=== PATIENT | male | born 1990 | race Caucasian/White ===

== ENCOUNTER 2017-06-16 16:04 | Emergency (ER) | payer SELFPAY ==
[2017-06-16 16:12] VITALS: BP 143/87
--- NOTE | 2017-06-16 16:54 | ER Document Report ---
HPI - HPI Patient complains to provider of: mouth pain Onset: Other - Several days Onset/Duration: Gradual Quality of pain: Achy, Throbbing Pain Level: 5 Context: 27-year-old male complaining of lower left mouth pain which now extends to the upper right side. No facial swelling or fever. Associated Symptoms: None Exacerbated by: Denies Relieved by: Denies Similar symptoms previously: Yes Recently seen / treated by doctor: No - ROS ROS below otherwise negative: Yes Systems Reviewed and Negative: Yes All other systems reviewed and negative - CARDIOVASCULAR Cardiovascular: DENIES: Chest pain - DERM Skin Color: Normal Past Medical History - General Information source: Patient - Social History Smoking Status: Former Smoker Chew tobacco use (# tins/day): Yes Frequency of alcohol use: Occasional Drug Abuse: None Lives with: Spouse/Significant other Family History: Reviewed & Not Pertinent Patient has suicidal ideation: No Patient has homicidal ideation: No - Medical History Medical History: Negative Surgical Hx: Negative - Immunizations Immunizations up to date: No Hx Diphtheria, Pertussis, Tetanus Vaccination: No Vertical Provider Document - CONSTITUTIONAL Agree With Documented VS: Yes Exam Limitations: No Limitations General Appearance: No Apparent Distress - INFECTION CONTROL TRAVEL OUTSIDE OF THE [place] IN LAST 30 DAYS: No - HEENT HEENT: Normocephalic Notes: multiple decayed teeth, no abscess, some retracted gingiva - NECK Neck: Supple. negative: Lymphadenopathy-Left, Lymphadenopathy-Right - RESPIRATORY Respiratory: Breath Sounds Normal, No Respiratory Distress O2 Sat by Pulse Oximetry: 99 - CARDIOVASCULAR Cardiovascular: Regular Rate, Regular Rhythm - NEURO Level of Consciousness: Awake, Alert, Appropriate - DERM Integumentary: Warm, Dry, No Rash Course - Vital Signs Vital signs: Temp Pulse Resp BP Pulse Ox 98.1 F 68 14 143/87 H 99 06/16/17 16:12 06/16/17 16:12 06/16/17 16:12 06/16/17 16:12 06/16/17 16:12 Discharge - Discharge Clinical Impression: Dental pain and decay Condition: Good Disposition: HOME, SELF-CARE Instructions: Penicillin V K ([facility]), Toothache ([facility]), Ultram ([facility]), Dentist Additional Instructions: see the dentist to er any concerns or swelling, fever Please complete the patient satisfaction survey if you get one, and return it.. If you do not receive a survey, then you can go to the [facility] website, [email or web address] and place your comments about your very good care. Thank you very much. It was a pleasure being your medical provider today. Prescriptions: Ibuprofen [Motrin 800 mg Tablet] 800 mg PO Q8HP PRN #30 tablet PRN Reason: Penicillin V Potassium [Penicillin Vk 500 mg Tablet] 500 mg PO QID #40 tablet Tramadol HCl [Ultram 50 mg Tablet] 50 mg PO ASDIR PRN #20 tablet PRN Reason: Forms: Return to Work
== END 2017-06-16 17:05 | disposition home or self-care (01) ==
LOC: ER 16:04
DX: K08.9 Disorder of teeth and supporting structures, unspecified (principal); K02.9 Dental caries, unspecified; Z87.891 Personal history of nicotine dependence
CPT/HCPCS: 99282

== ENCOUNTER 2017-07-14 14:17 | Emergency (ER) | payer SELFPAY ==
[2017-07-14] MEDS ORDERED: LIDOCAINE 1% INJ-PF (10 MG/ML) 30 ML SDV INJ ONE (15:05)
--- NOTE | 2017-07-14 15:06 | ER Document Report ---
ED Head/Face/Scalp Injury - General Chief Complaint: Head Injury Stated Complaint: HEAD INJURY Time Seen by Provider: 07/14/17 14:44 Mode of Arrival: Ambulatory Information source: Patient Notes: 27-year-old male presents to ED for injury to the right scalp. He states he was framing a house when a nail gun was dropped from above him landing with the sharp pointing point of the nail gun with a red nail attached to the right scalp. He states his tetanus shot was last within the last 2 years. He is alert and oriented. He states he did not lose consciousness at the time of the injury but it was for a short period of time. He has had no disorientation, confusion, or loss of sensation since then. He has had no vomiting, but he states he has felt a little nauseated. He walks with a steady gait cranial nerves grossly intact, people pupils equal and react to light. TRAVEL OUTSIDE OF THE [place] IN LAST 30 DAYS: No - HPI Patient complains to provider of: Injury, Laceration, Pain, Swelling Injury to: Scalp Location of problem: Head Occurred: This afternoon Where: Outdoors, Work Timing: Better Context: Other - nail gun fell @ 15 feet landing on the left side of scalp Loss consciousness: Brief (seconds) - unknown period Remembers: Injury, Coming to hospital - Related Data Allergies/Adverse Reactions: No Known Allergies Allergy (Verified 07/14/17 14:31) Past Medical History - General Information source: Patient - Social History Smoking Status: Current Every Day Smoker Cigarette use (# per day): Yes - ppd Chew tobacco use (# tins/day): No Smoking Education Provided: Yes - less than 2 min Frequency of alcohol use: None Drug Abuse: None 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[employer] Lives with: Spouse/Significant other Family History: CAD, COPD, CVA, DM, Hyperlipidemia, Hypertension, Thyroid Disfunction - Past Medical History Cardiac Medical History: Reports: None Pulmonary Medical History: Reports: None EENT Medical History: Reports: None Neurological Medical History: Reports: None Endocrine Medical History: Reports: None Renal/ Medical History: Reports: None Malignancy Medical History: Reports None GI Medical History: Reports: None Musculoskeltal Medical History: Reports None Skin Medical History: Reports None Psychiatric Medical History: Reports: None Traumatic Medical History: Reports: None Infectious Medical History: Reports: None Surgical Hx: Negative Past Surgical History: Reports: None - Immunizations Immunizations up to date: No Hx Diphtheria, Pertussis, Tetanus Vaccination: No Review of Systems - Review of Systems Constitutional: No symptoms reported EENT: No symptoms reported Cardiovascular: No symptoms reported Respiratory: No symptoms reported Gastrointestinal: No symptoms reported Genitourinary: No symptoms reported Male Genitourinary: No symptoms reported Musculoskeletal: No symptoms reported Skin: Other - scalp 2 cm flap Hematologic/Lymphatic: No symptoms reported Neurological/Psychological: No symptoms reported -: Yes All other systems reviewed and negative Physical Exam - Vital signs Vitals: Temp Pulse Resp BP Pulse Ox 98.7 F 75 16 130/79 H 98 07/14/17 14:29 07/14/17 14:29 07/14/17 14:29 07/14/17 14:29 07/14/17 14:29 Interpretation: Normal - General General appearance: Appears well, Alert - HEENT Head: Normocephalic, Atraumatic Eyes: Normal Pupils: PERRL - Respiratory Respiratory status: No respiratory distress Chest status: Nontender Breath sounds: Normal Chest palpation: Normal - Cardiovascular Rhythm: Regular Heart sounds: Normal auscultation Murmur: No - Abdominal Inspection: Normal Distension: No distension Bowel sounds: Normal Tenderness: Nontender Organomegaly: No organomegaly - Back Back: Normal, Nontender - Extremities General upper extremity: Normal inspection, Nontender, Normal color, Normal ROM , Normal temperature General lower extremity: Normal inspection, Nontender, Normal color, Normal ROM , Normal temperature, Normal weight bearing. No: Ashtyn's sign - Neurological Neuro grossly intact: Yes Cognition: Normal Orientation: AAOx4 [place] Coma Scale Eye Opening: Spontaneous [place] Coma Scale Verbal: Oriented Reyna Coma Scale Motor: Obeys Commands Reyna Coma Scale Total: 15 Speech: Normal Motor strength normal: LUE, RUE, LLE, RLE Sensory: Normal - Psychological Associated symptoms: Normal affect, Normal mood - Skin Skin Temperature: Warm Skin Moisture: Dry Skin Color: Normal Course - Re-evaluation Re-evalutation: 07/14/17 21:33 Head injury precautions discussed with patient before discharge. Discussion of no heavy stenting or spicy foods for the next 24 hours. Family to wake him up to check his orientation every 4-6 hours. Patient to return to the ED for any projectile vomiting increase in pain confusion disorientation. Patient also given instructions concerning scalp laceration with carolee. Patient to follow- up with primary doctor in 2-3 days and have carolee removed in 5 days. Patient was discharged home with prescription for Sav[place] - Vital Signs Vital signs: Temp Pulse Resp BP Pulse Ox 97.8 F 57 L 16 108/69 96 07/14/17 16:00 07/14/17 16:00 07/14/17 16:00 07/14/17 16:00 07/14/17 16:00 Procedures - Laceration/Wound Repair Left scalp Time completed: 15:40 Wound length (cm): 2 Wound's Depth, Shape: Irregular, Flap - two connected flaps Laceration pre-procedure: Sterile PPE donned, Sterile drapes applied, Other Anesthetic type: 1% Lidocaine Volume Anesthetic (mLs): 556 Wound explored: Contaminated Irrigated w/ Saline (mLs): 500 Wound Repaired With: Carolee Number of Sutures: 5 - carolee Layer Closure?: No Post-procedure NV exam normal: Yes Complications: No Discharge - Discharge Clinical Impression: Scalp laceration Qualifiers: Encounter type: initial encounter Qualified Code(s): S01.01XA - Laceration without foreign body of scalp, initial encounter Head injury Qualifiers: Encounter type: initial encounter Qualified Code(s): S09.90XA - Unspecified injury of head, initial encounter Condition: Stable Disposition: HOME, SELF-CARE Instructions: Family Physicians / Practices Additional Instructions: Scalp Laceration A scalp laceration requires little care. Dressings are applied only if severe bleeding or a large flap are present. Usually, once the cut is sutured, you can ignore it. Simply comb the hair over top of it to hide the stitches and go about your usual routine. You can shampoo your hair as needed starting tomorrow. If you need to wear a special hat or protective helmet for work, be careful that it doesn't press on the area. If crusting is bothersome, you can soften the crusts with Polysporin ointment, then shampoo. Infection in a scalp laceration is rare. If any signs of infection occur ( swelling, redness, increasing tenderness, red streaks, tender lumps in the neck on the side of the laceration, or fever), see the doctor immediately. SOAP CLEANSING: Gently wash the wound daily using a mild soap (like Ivory, Phisoderm, Neutrogena). Use warm water, rubbing gently until all debris, ooze, and crusting have been washed from the wound. Allow to dry briefly (about 10 minutes) after cleaning. Repeat this cleansing at least three times a day for the first two days and then once or twice a day. ANTIBIOTIC OINTMENT PROTECTION: Your wounds are such that dressing them is not practical or optional. After cleansing, you should apply a thin coating of antibiotic ointment ( Bacitracin, not Neosporin) to the wounds at least three times daily. This lessens infection risk, and may decrease the amount of scarring. Use a q-tip or dull butter knife, not your finger, to apply this ointment. Any debris or ooze which builds up in the ointment should be gently rubbed off with a sterile gauze pad. Harder crusting may need to be gently scrubbed off with a clean wash cloth with soap and warm water, perhaps applying a warm, wet wash cloth to the wound for ten minutes first. Development of redness, severe itching, or blistering may mean allergy to the ointment. See the doctor. Care of Stapled Wounds Your laceration has been stapled to keep the skin edges aligned during healing. The time of staple removal depends on the nature and location of your cut. Please follow the care instructions the doctor has outlined for you and return for further care, according to the schedule you've been given. A special instrument is needed to remove carolee without injuring your skin further, so don't try to take the carolee out yourself. Keep the wound and dressing clean. Unless you were told otherwise, you may shower daily, blotting the wound dry with a clean, unused towel. At other times, If the dressing gets wet or blood soaked, remove it and blot the wound dry, then reapply a new dressing. Unless you were instructed otherwise, dressings should be changed at least daily. If any signs of infection occur (swelling, redness, increasing tenderness, red streaks, tender lumps in the armpit or groin above the laceration, or fever) , see the doctor immediately. ORAL NARCOTIC MEDICATION: You have been given a dispense pack of [place] for pain control. This medication is a narcotic. It's best taken with food, as nausea can result if taken on an empty stomach. Don't operate machinery or drive within six hours of taking this medication. Do not combine this medicine with alcohol, or with any medication which can cause sedation (such as cold tablets or sleeping pills) unless you get permission from the physician. Narcotics tend to cause constipation. If possible, drink plenty of fluids and eat a diet high in fiber and fruits. FOLLOW-UP CARE: Please return in __3___ days for an infection check and dressing change. Your carolee should be removed in ____5_ days. To facilitate a timely removal of your carolee, you may return to the Emergency Department at [facility]. You do not need to call for an appointment, but the best time to come in for suture removal is early in the morning. If you have been referred to another physician for follow-up care, call that physicians office for an appointment as you were instructed. If you experience a significant change in your laceration, or if you are concerned there may be an infection (swelling, redness, drainage, increasing tenderness, red streaks, tender lumps in the armpit or groin above the laceration, or fever) , return to the Emergency Department immediately re-evaluation. Prescriptions: Hydrocodone/Acetaminophen [Savannah 5-325 mg Tablet] 1 tab PO Q6HP PRN #10 tablet PRN Reason: Forms: Elevated Blood Pressure, Smoking Cessation Education, Return to Work
[2017-07-14 16:02] VITALS: BP 108/69
== END 2017-07-14 16:09 | disposition home or self-care (01) ==
LOC: ER 14:17
PROC: 0HQ0XZZ Repair Scalp Skin, External Approach (ICD-10-PCS; principal; 2017-07-14)
DX: S01.01XA Laceration without foreign body of scalp, initial encounter (principal); W20.8XXA Other cause of strike by thrown, projected or falling object, initial encounter
CPT/HCPCS: 99283; 12001; J3490

== ENCOUNTER 2017-07-23 19:26 | Emergency (ER) | payer SELFPAY ==
[2017-07-23 19:35] VITALS: BP 145/94
--- NOTE | 2017-07-23 19:35 | ER Document Report ---
ED Suture/Wound Recheck - General Chief Complaint: Suture Removal Stated Complaint: FOLLOW UP/STAPLE REMOVAL Time Seen by Provider: 07/23/17 19:35 Mode of Arrival: Ambulatory Information source: Patient TRAVEL OUTSIDE OF THE [place] IN LAST 30 DAYS: No - HPI Notes: Patient with carolee placed to the left side of scalp on the 16, presents to have them removed 2 days later than he was supposed to. Denies any pain or drainage. Denies any complications. - Related Data Allergies/Adverse Reactions: No Known Allergies Allergy (Verified 07/14/17 14:31) Past Medical History - General Information source: Patient - Social History Smoking Status: Current Every Day Smoker Chew tobacco use (# tins/day): Yes Family History: CAD, COPD, CVA, DM, Hyperlipidemia, Hypertension, Thyroid Disfunction Renal/ Medical History: Denies: Hx Kidney Stones, Hx Peritoneal Dialysis - Immunizations Immunizations up to date: No Hx Diphtheria, Pertussis, Tetanus Vaccination: No Review of Systems - Review of Systems EENT: No symptoms reported Skin: See HPI Physical Exam - Vital signs Vitals: Temp Pulse Resp BP Pulse Ox 98.5 F 90 16 145/94 H 96 07/23/17 19:30 07/23/17 19:30 07/23/17 19:30 07/23/17 19:30 07/23/17 19:30 Interpretation: Hypertensive - General General appearance: Appears well, Alert - HEENT Notes: Well-healed laceration with [address] on the left side of the scalp, slightly crusty, no discharge, no erythema, no fluctuance. - Psychological Associated symptoms: Normal affect, Normal mood Course - Re-evaluation Re-evalutation: 07/23/17 19:38 [place] removed without difficulty. - Vital Signs Vital signs: Temp Pulse Resp BP Pulse Ox 98.5 F 90 16 145/94 H 96 07/23/17 19:30 07/23/17 19:30 07/23/17 19:30 07/23/17 19:30 07/23/17 19:30 Discharge - Discharge Clinical Impression: Removal of staple Hypertension Qualifiers: Hypertension type: essential hypertension Qualified Code(s): I10 - Essential ( primary) hypertension Condition: Stable Disposition: HOME, SELF-CARE Forms: Elevated Blood Pressure
== END 2017-07-23 19:48 | disposition home or self-care (01) ==
LOC: ER 19:26
DX: S01.01XD Laceration without foreign body of scalp, subsequent encounter (principal); X58.XXXD Exposure to other specified factors, subsequent encounter; I10 Essential (primary) hypertension; F17.200 Nicotine dependence, unspecified, uncomplicated

== ENCOUNTER 2019-07-15 01:39 | Emergency (ER) | payer SELFPAY ==
[2019-07-15 01:53] VITALS: BP 127/86
[2019-07-15] MEDS ORDERED: LIDOCAINE 1% INJ-PF (10 MG/ML) 30 ML SDV INJ ONE ×2 (04:43→09:01)
--- NOTE | 2019-07-15 05:34 | RADIOLOGY REPORT (SQ) ---
EXAM DESCRIPTION: XR FOREARM 2 VIEWS COMPLETED DATE/TME: 07/15/2019 04:43 CLINICAL HISTORY: 29 years Male, laceration COMPARISON: None. Findings: Known soft tissue injury; no radioopaque foreign body. Bones, joints, and soft tissues of the LEFT XR FOREARM 2 VIEWS appear otherwise intact. IMPRESSION: Soft tissue injury; else, no acute findings.
--- NOTE | 2019-07-15 08:27 | ER Document Report ---
ED Medical Screen (RME) - General Chief Complaint: Laceration Stated Complaint: LACERATION Time Seen by Provider: 07/15/19 04:39 Mode of Arrival: Ambulatory Information source: Patient Notes: Patient presents emergency department with laceration to his left forearm. Reports he dropped a mirror on it yesterday morning. Reports his tetanus is up-to-date. Patient reports he just would not quit bleeding. Denies history of bleeding disorders. Laceration flap noted with active bleeding approximately 3 cm linear. I have greeted and performed a rapid initial assessment of this patient. A comprehensive ED assessment and evaluation of the patient, analysis of test results and completion of the medical decision making process will be conducted by additional ED providers. Dictation of this chart was performed using voice recognition software; therefore, there may be some unintended grammatical errors. TRAVEL OUTSIDE OF THE [place] IN LAST 30 DAYS: No - Related Data Allergies/Adverse Reactions: No Known Allergies Allergy (Verified 07/15/19 01:47) Past Medical History Renal/ Medical History: Denies: Hx Kidney Stones, Hx Peritoneal Dialysis - Immunizations Immunizations up to date: No Hx Diphtheria, Pertussis, Tetanus Vaccination: No Physical Exam - Vital signs Vitals: Temp Pulse Resp BP Pulse Ox 98.4 F 77 18 127/86 H 97 07/15/19 01:52 07/15/19 01:52 07/15/19 01:52 07/15/19 01:52 07/15/19 01:52 Course - Vital Signs Vital signs: Temp Pulse Resp BP Pulse Ox 98.4 F 77 18 127/86 H 97 07/15/19 01:52 07/15/19 01:52 07/15/19 01:52 07/15/19 01:52 07/15/19 01:52
[2019-07-15] MEDS ORDERED: IBUPROFEN 600 MG TABLET PO ONE (09:06)
--- NOTE | 2019-07-15 09:30 | ER Document Report ---
HPI - HPI Time Seen by Provider: 07/15/19 04:39 Pain Level: 3 Notes: Patient is a 29-year-old male no significant past medical history who presents complaining of laceration to his left posterior forearm after he was cut by a piece of glass yesterday morning. Patient states that the wound is continued to lightly bleed. He is able to move his hand and wrist without any difficulties otherwise. He is not on any blood thinning medications. Denies drug allergies or IV drug abuse. No other concerns or complaints. Denies any headache, fever, head injury, neck pain, URI, sore throat, chest pain, palpitations, syncope, cough, shortness of breath, wheeze, dyspnea, abdominal pain, nausea/vomiting/diarrhea, urinary retention, dysuria, hematuria, loss of control of bowel or bladder, numbness/tingling, saddle anesthesia, muscle paralysis/weakness, or rash. - ROS Systems Reviewed and Negative: Yes All other systems reviewed and negative - REPRODUCTIVE Reproductive: DENIES: : - DERM Skin Color: Normal Past Medical History - General Information source: Patient - Social History Smoking Status: Never Smoker Family History: CAD, COPD, CVA, DM, Hyperlipidemia, Hypertension, Thyroid Disfunction Patient has suicidal ideation: No Patient has homicidal ideation: No Renal/ Medical History: Denies: Hx Kidney Stones, Hx Peritoneal Dialysis - Immunizations Immunizations up to date: No Hx Diphtheria, Pertussis, Tetanus Vaccination: No Vertical Provider Document - CONSTITUTIONAL Agree With Documented VS: Yes Notes: PHYSICAL EXAMINATION: GENERAL: Well-appearing, well-nourished and in no acute distress. HEAD: Atraumatic, normocephalic. NECK: Normal range of motion, supple without lymphadenopathy. No midline tenderness. LUNGS: Breath sounds clear to auscultation bilaterally and equal. No wheezes rales or rhonchi. HEART: Regular rate and rhythm without murmurs, rubs, gallops. Musculoskeletal: Lt hand/wrist: No erythema, warmth, ecchymosis, deformity, or swelling noted. N/V intact distal. FROM to passive/active at the wrist. Strength 5+/5 to religious healer. No scaphoid tenderness. No other bony tenderness. + superficial linear 3cm laceration noted distal posterior forearm. Extremities: No cyanosis, clubbing, or edema b/l. Peripheral pulses 2+. Capillary refill less than 3 seconds. NEUROLOGICAL: Normal speech, normal gait. Normal sensory, motor exams otherwise unremarkable PSYCH: Normal mood, normal affect. SKIN: see above. No rash - INFECTION CONTROL TRAVEL OUTSIDE OF THE [place] IN LAST 30 DAYS: No Course - Re-evaluation Re-evalutation: 07/15/19 Patient is an afebrile, well-hydrated, 29-year-old male who presents to the ED with a laceration to his left posterior forearm requiring suture repair. Vitals are acceptable. PE is otherwise unremarkable for any neurovascular compromise, obvious tendon/ligament rupture, obvious fracture/dislocation, septic joint. Patient is nontoxic-appearing and is tolerating p.o. without difficulties. Wound was thoroughly irrigated and cleansed. Wound edges were approximated appropriately utilizing 3 simple interrupted sutures and 1 horizontal mattress. Wound dressing was placed and wound instructions reviewed. Patient tolerated procedure well without any complications. Tetanus utd. No further labs or imaging warranted. Sutures will need removed in 10 days. Recheck with your PCM in 2-3 days. Consider consult orthopedics if needed. Return to the ED with any worsening/concerning symptoms otherwise as reviewed in discharge. Patient is in agreement. - Vital Signs Vital signs: Temp Pulse Resp BP Pulse Ox 98.4 F 77 18 127/86 H 97 07/15/19 01:52 07/15/19 01:52 07/15/19 01:52 07/15/19 01:52 07/15/19 01:52 Procedures - Laceration/Wound Repair Left Arm Wound length (cm): 3 Wound's Depth, Shape: Superficial, Linear Laceration pre-procedure: Sterile PPE donned, Sterile drapes applied Anesthetic type: 1% Lidocaine w/epi Volume Anesthetic (mLs): 4 Wound explored: Clean, No foreign body removed Irrigated w/ Saline (mLs): 200 Wound Debrided: Minimal Wound Repaired With: Sutures Suture Size/Type: 4:0, Nylon Number of Sutures: 4 - 1 horizontal and 3 simple Layer Closure?: No Post-procedure wound care: Sterile dressing applied Post-procedure NV exam normal: Yes Complications: No Discharge - Discharge Clinical Impression: Laceration of left forearm Qualifiers: Encounter type: initial encounter Qualified Code(s): S51.812A - Laceration without foreign body of left forearm, initial encounter Condition: Stable Disposition: HOME, SELF-CARE Instructions: Antibiotic Ointment Protection ([facility]), Laceration Care ([facility]), Soap Cleansing ([facility]) Additional Instructions: Do not shower or bathe for 24 hours. After 24 hours you may shower but no submersion of the wound under water. Keep the original dressing on the wound for 24 hours unless the drainage soaks through. Change the dressing daily thereafter and keep the knots of the suture material clean from any dried discharge. You may leave the wound open to the air once there is no more discharge. See your PCM in 2-3 days for a recheck. Monitor for any signs of worsening pain or redness, purulent drainage, streaks, and/or fever. Return to the ED if noticing any of the above symptoms or as needed. Take medications as directed. Your sutures will need to be removed in 10 days. Prescriptions: Cephalexin Monohydrate [Keflex 500 mg Capsule] 500 mg PO BID #14 capsule Forms: Elevated Blood Pressure, Return to Work Referrals: [facility] [Provider Group] - Follow up as needed
[2019-07-15] MEDS ORDERED: LIDOCAINE 1%/EPINEPHRINE INJ 20 ML VIAL ONE (10:00)
[2019-07-15] MEDS ORDERED: LIDOCAINE 1%/EPINEPHRINE INJ 20 ML VIAL INJ ONE (10:31)
== END 2019-07-15 10:43 | disposition home or self-care (01) ==
LOC: ER 01:39
DX: S51.812A Laceration without foreign body of left forearm, initial encounter (principal); W25.XXXA Contact with sharp glass, initial encounter
CPT/HCPCS: 99282; 73090; 12002; J3490

== ENCOUNTER 2019-12-07 09:24 | Emergency (ER) | payer SELFPAY ==
[2019-12-07] MEDS ORDERED: NORMAL SALINE 1000 ML 1,000 ML IV ONE ×2 (09:56→13:25)
--- NOTE | 2019-12-07 09:58 | ER Document Report ---
ED Medical Screen (RME) - General Chief Complaint: Shortness Of Breath Stated Complaint: SHORTNESS OF BREATH Time Seen by Provider: 12/07/19 09:51 Mode of Arrival: Ambulatory Information source: Patient Notes: Patient presents complaining of fatigue for the past 3 weeks with mild cough nausea and sore throat and shortness of breath. Patient denies any vomiting or diarrhea. Patient has had recent sick contacts who were diagnosed with pneumonia and patient is concerned about this today. I have greeted and performed a rapid initial assessment of this patient. A comprehensive ED assessment and evaluation of the patient, analysis of test results and completion of the medical decision making process will be conducted by additional ED providers. TRAVEL OUTSIDE OF THE [place] IN LAST 30 DAYS: No - Related Data Allergies/Adverse Reactions: No Known Allergies Allergy (Verified 07/15/19 01:47) Past Medical History Renal/ Medical History: Denies: Hx Kidney Stones, Hx Peritoneal Dialysis - Immunizations Immunizations up to date: No Hx Diphtheria, Pertussis, Tetanus Vaccination: No Physical Exam - Vital signs Vitals: Temp Pulse Resp BP Pulse Ox 99.1 F 122 H 24 H 150/68 H 100 12/07/19 09:42 12/07/19 09:42 12/07/19 09:42 12/07/19 09:42 12/07/19 09:42 - Respiratory Respiratory status: No respiratory distress - Cardiovascular Rhythm: Tachycardia Heart sounds: S1 appreciated, S2 appreciated Course - Vital Signs Vital signs: Temp Pulse Resp BP Pulse Ox 99.1 F 122 H 24 H 150/68 H 100 12/07/19 09:42 12/07/19 09:42 12/07/19 09:42 12/07/19 09:42 12/07/19 09:42
[2019-12-07 10:32] LABS: ABSOLUTE LYMPHOCYTES (AUTO) 0.2 10^3/uL (0.5-4.7); ABSOLUTE NEUT (AUTO) 4.2 10^3/uL (1.7-8.2); BASOPHILS % (AUTO) 0.2 % (0-2); EOSINOPHILS % (AUTO) 0.3 % (0-6); HEMATOCRIT 45.3 % (37.9-51.0); LYMPHOCYTES % (AUTO) 5.3 % (13-45); MEAN CORPUSCULAR HEMOGLOBIN 27.2 pg (27.0-33.4); MEAN CORPUSCULAR HGB CONC 33.2 g/dL (32.0-36.0); MEAN CORPUSCULAR VOLUME 82 fl (80-97); MONOCYTES % (AUTO) 0.6 % (3-13); PLATELET COUNT 223 10^3/uL (150-450); RED BLOOD COUNT 5.54 10^6/uL (4.35-5.55); RED CELL DISTRIBUTION WIDTH 14.4 % (11.5-14.0); SEGMENTED NEUTROPHILS % (AUTO) 93.6 % (42-78); TOTAL CELLS COUNTED % (AUTO) 100 %; WHITE BLOOD COUNT 4.4 10^3/uL (4.0-10.5)
[2019-12-07 10:54] LABS: ANION GAP 12 (5-19); BLOOD UREA NITROGEN 18 mg/dL (7-20); CALCIUM 9.2 mg/dL (8.4-10.2); CARBON DIOXIDE 25 mmol/L (22-30); CHLORIDE 101 mmol/L (98-107); GLUCOSE 107 mg/dL (75-110)
--- NOTE | 2019-12-07 10:56 | RADIOLOGY REPORT (SQ) ---
EXAM DESCRIPTION: CHEST 2 VIEWS COMPLETED DATE/TIME: 12/07/2019 9:27 am REASON FOR STUDY: cough, sob COMPARISON: None. EXAM PARAMETERS: NUMBER OF VIEWS: two views TECHNIQUE: Digital Frontal and Lateral radiographic views of the chest acquired. RADIATION DOSE: NA LIMITATIONS: none FINDINGS: LUNGS AND PLEURA: No opacities, masses or pneumothorax. No pleural effusion. MEDIASTINUM AND HILAR STRUCTURES: No masses or contour abnormalities. HEART AND VASCULAR STRUCTURES: Heart normal size. No evidence for failure. BONES: No acute findings. HARDWARE: None in the chest. OTHER: No other significant finding. IMPRESSION: NO ACUTE RADIOGRAPHIC FINDING IN THE CHEST. TECHNICAL DOCUMENTATION: JOB ID: [id number] [email or web address]- All Rights Reserved Reading location - IP/workstation name: [email or web address]
--- NOTE | 2019-12-07 12:25 | ER Document Report ---
ED Respiratory Problem - General Chief Complaint: Shortness Of Breath Stated Complaint: SHORTNESS OF BREATH Time Seen by Provider: 12/07/19 09:51 Primary Care Provider: [facility] [Provider Group] - Follow up in 3-5 days [facility] [Provider Group] - Follow up in 3-5 days Mode of Arrival: Ambulatory TRAVEL OUTSIDE OF THE [place] IN LAST 30 DAYS: No - HPI Notes: 29-year-old male to the emergency department with complaints of generalized fatigue, shortness of breath, slight cough for the past 3 weeks. He states that he has been experiencing episodes of sweating and this morning he noticed that he was very short of breath just upon awakening. He states that bilateral feet have sometimes been swollen but denies any calf swelling or unilateral leg swelling. He has not recently been traveling. He does have a sick contact in his grandfather who had pneumonia. He is not really sure if he has had a fever but states that some of his family members have told him that he is felt hot. He states that prior to this illness he was feeling well but now he feels like he cannot even stay up during the day because he is so tired. He states that his shortness of breath does get a little bit worse when he exerts himself. He has never had a heart attack or a pulmonary embolus. Does smoke. He has no other medical issues. He does occasionally recreationally use opioids. He states that he last used 1 Percocet yesterday but he has not been regularly using them for some time now. He denies any diarrhea. He admits to some nausea but no vomiting. He is not been having constipation. - Related Data Allergies/Adverse Reactions: No Known Allergies Allergy (Verified 07/15/19 01:47) Past Medical History - General Information source: Patient - Social History Smoking Status: Current Every Day Smoker Frequency of alcohol use: Social Drug Abuse: Prescription drugs - [place] Lives with: Family Family History: CAD, COPD, CVA, DM, Hyperlipidemia, Hypertension, Thyroid Disfu nction Patient has suicidal ideation: No Patient has homicidal ideation: No Renal/ Medical History: Denies: Hx Kidney Stones, Hx Peritoneal Dialysis - Immunizations Immunizations up to date: No Hx Diphtheria, Pertussis, Tetanus Vaccination: No Review of Systems - Review of Systems Constitutional: See HPI, Chills, Diaphoresis, Fever, Weakness EENT: Throat pain. denies: Ear pain, Nose congestion, Nose discharge Cardiovascular: Edema - Bilateral feet swelling. denies: Chest pain, Palpitations, Syncope, Dizziness Respiratory: See HPI, Cough, Short of breath Gastrointestinal: Nausea. denies: Abdominal pain, Diarrhea, Vomiting, Constipation Skin: No symptoms reported Hematologic/Lymphatic: No symptoms reported Neurological/Psychological: No symptoms reported -: Yes All other systems reviewed and negative Physical Exam - Vital signs Vitals: Temp Pulse Resp BP Pulse Ox 99.1 F 122 H 24 H 150/68 H 100 12/07/19 09:42 12/07/19 09:42 12/07/19 09:42 12/07/19 09:42 12/07/19 09:42 Interpretation: Tachycardic, Tachypneic - General General appearance: Alert In distress: None - HEENT Head: Normocephalic, Atraumatic Eyes: Normal Pupils: PERRL Ears: Normal External canal: Normal Tympanic membrane: Normal Sinus: Normal Nasal: Normal Mouth/Lips: Normal. No: Angioedema, Caries Mucous membranes: Normal Pharynx: Post nasal drainage. No: Blood in hypopharynx, Erythema, Exudate, Retropharyngeal abscess, Tonsillar hypertrophy, Uvular edema, Potential airway comprom. Neck: Normal, Supple. No: Lymphadenopathy, Meningismus - Respiratory Respiratory status: No respiratory distress Chest status: Nontender. No: Pain on movement Breath sounds: Normal. No: Rales, Rhonchi, Stridor, Wheezing Chest palpation: Normal - Cardiovascular Rhythm: Regular Heart sounds: Normal auscultation Murmur: No Notes: Pedal edema appreciated on my exam - Abdominal Inspection: Normal Distension: No distension Bowel sounds: Normal Tenderness: Nontender Organomegaly: No organomegaly - Back Back: No: Normal, Nontender, CVA tenderness - Extremities General upper extremity: Normal inspection, Nontender, Normal color, Normal ROM, Normal temperature General lower extremity: Normal inspection, Nontender, Normal color, Normal ROM, Normal temperature, Normal weight bearing. No: Ashtyn's sign - Neurological Neuro grossly intact: Yes Cognition: Normal Orientation: AAOx4 [place] Coma Scale Eye Opening: Spontaneous [place] Coma Scale Verbal: Oriented Reyna Coma Scale Motor: Obeys Commands Reyna Coma Scale Total: 15 Speech: Normal Cranial nerves: Normal Cerebellar coordination: Normal Motor strength normal: LUE, RUE, LLE, RLE Additional motor exam normals: Equal physical therapy asst Sensory: Normal - Psychological Associated symptoms: Normal affect, Normal mood - Skin Skin Temperature: Warm Skin Moisture: Dry Skin Color: Normal Course - Re-evaluation Re-evalutation: Initial vital signs with patient with tachypnea and tach cardia. This has improved since getting fluid bolus. However his shortness of breath is vague at best so ordered d-dimer. D-dimer is elevated. We will go ahead and order CTA chest for further evaluation. Advised patient of plan and he agrees. CTA is reassuring. Likely that this is some sort of viral syndrome. Patient's vital signs have improved. Will plan to discharge home. Have given strict return precautions. Patient agrees with the plan. - Vital Signs Vital signs: Temp Pulse Resp BP Pulse Ox 98.4 F 122 H 20 108/77 99 12/07/19 16:20 12/07/19 09:42 12/07/19 16:01 12/07/19 16:01 12/07/19 16:01 Selected Entries 12/07/19 12/07/19 16:01 16:20 Temperature 98.4 F Heart Rate ( 83 Monitors) Respiratory 20 Rate Blood Pressure 108/77 O2 Sat by Pulse 99 Oximetry noted improvement of vital signs. - Laboratory Result Diagrams: 12/07/19 10:05 12/07/19 10:05 Laboratory results interpreted by me: 12/07/19 12/07/19 10:05 10:05 RDW 14.4 H Lymph % (Auto) 5.3 L Mclean % (Auto) 0.6 L Absolute Lymphs (auto) 0.2 L Absolute Monos (auto) 0.0 L Seg Neutrophils % 93.6 H D-Dimer 3.98 H - Diagnostic Test Radiology reviewed: Image reviewed, Reports reviewed - EKG Interpretation by Me Additional EKG results interpreted by me: 12/07/19 rate 85, rhythm: Sinus. Interpretation: no STEMI. no diffuse T wave elevations to suggest pericarditis. Patient is not in atrial fibrillation. no comparison. Discharge - Discharge Clinical Impression: Shortness of breath, Cough, Nausea Fatigue Qualifiers: Fatigue type: unspecified Qualified Code(s): R53.83 - Other fatigue Condition: Stable Disposition: HOME, SELF-CARE Instructions: Viral Syndrome ([facility]) Additional Instructions: PUSH FLUIDS. REST AT HOME. FOLLOW UP WITH PRIMARY CARE CLINIC WITHOUT FAIL. RETURN IF WORSENING SYMPTOMS. Prescriptions: Ondansetron [Zofran Odt 4 mg Tablet] 1 - 2 tab PO Q4H PRN #15 tab.rapdis PRN Reason: For Nausea/Vomiting Referrals: [facility] [Provider Group] - Follow up in 3-5 days [facility] [Provider Group] - Follow up in 3-5 days
[2019-12-07 14:22] LABS: POTASSIUM 4.6 mmol/L (3.6-5.0)
[2019-12-07 14:46] LABS: TROPONIN I 0.021 ng/mL
[2019-12-07 15:29] LABS: FREE T4 (FREE THYROXINE) 0.91 ng/dL (0.78-2.19)
--- NOTE | 2019-12-07 15:30 | RADIOLOGY REPORT (SQ) ---
EXAM DESCRIPTION: CTA CHEST COMPLETED DATE/TIME: 12/07/2019 3:14 pm REASON FOR STUDY: SOB COMPARISON: Same day chest radiograph TECHNIQUE: CT scan of the chest performed using helical scanning technique with dynamic intravenous contrast injection. Images reviewed with lung, soft tissue and bone windows. Reconstructed coronal and sagittal MPR images reviewed. Additional 3 dimensional post-processing performed to develop Maximal Intensity Projection images (NE P). All images stored on PACS. All CT scanners at this facility use dose modulation, iterative reconstruction, and/or weight based d osing when appropriate to reduce radiation dose to as low as reasonably achievable (ALARA). [facility]: Dose Right [facility]: CareDose [facility]: Dose Right [facility]: Teradose 4D [facility]: Everplans CONTRAST TYPE AND DOSE: contrast/concentration: Isovue 350.00 mg/ml; Total Contrast Delivered: 104.0 ml; Total Saline Delivered: 128.0 ml RENAL FUNCTION: None required. The patient is less than 50 years old. RADIATION DOSE: CT Rad equipment meets quality standard of care and radiation dose reduction techniq ues were employed. CTDIvol: 3.3 - 16.5 mGy. DLP: 1142 mGy-cm. . LIMITATIONS: None. FINDINGS: LUNGS AND PLEURA: No masses, infiltrates, or pneumothorax. No pleural effusions or pleura l calcifications. AORTA AND GREAT VESSELS: No aneurysm. Contrast bolus not optimized for the aorta. HEART: No pericardial effusion. No significant coronary artery calcifications. PULMONARY ARTERIES: Examination for pulmonary embolism is limited by marginal contrast bolus and david th motion artifact. Within this limitation, no evidence of pulmonary embolism through the segmental pulmonary artery level. HILAR AND MEDIASTINAL STRUCTURES: No identified masses or abnormal nodes. HARDWARE: None in the chest. UPPER ABDOMEN: No significant findings. Limited exam. THYROID AND OTHER SOFT TISSUES: No masses. No adenopathy. BONES: No acute or significant finding. 3D MIPS: Confirm above findings. OTHER: No other significant finding. IMPRESSION: Examination for pulmonary embolism is limited by marginal contrast bolus and breath geovani on artifact. Within this limitation, no evidence of pulmonary embolism through the segmental pulmona ry artery level. COMMENT: Quality ID # [id number]: Final reports with documentation of one or more dose reduction techniques (e.g., Automated exposure control, adjustment of the mA and/or kV according to patient size, use of iterative reconstruction technique) TECHNICAL DOCUMENTATION: JOB ID: [id number] [employer]- All Rights Reserved Reading location - IP/workstation name: [email or web address]
[2019-12-07 15:43] LABS: THYROID STIMULATING HORMONE 1.34 uIU/mL (0.47-4.68)
[2019-12-07 16:11] VITALS: BP 108/77
--- NOTE | 2019-12-07 22:02 | EKG REPORT ---
SEVERITY:- ABNORMAL ECG - SINUS RHYTHM : Confirmed by: Luly Conner 07-Dec-2019 22:02:15
== END 2019-12-07 16:20 | disposition home or self-care (01) ==
LOC: ER 09:24
DX: R06.02 Shortness of breath (principal); R05 Cough; R11.0 Nausea; R53.83 Other fatigue; F17.200 Nicotine dependence, unspecified, uncomplicated
CPT/HCPCS: 93005; 99285; 96360; 96361; 36415; 87070; 84439; 87880; 84443; 85025; 86308; 80048; 84484; 85379; 83880; 71046; 71275; 93010; J7030